=== PATIENT | female | born 1985 | race Caucasian/White ===

== ENCOUNTER → 2018-04-18 12:32 | Outpatient (CLI) | payer OTHER, SELFPAY ==
--- NOTE | 2018-04-18 12:36 | US_ITS ---
US transvaginal Ordering Physician: Marlon Mayes MD Patient Age: 33 years: Female HISTORY: ITS.REASON: US T/V- LLQP Left lower quadrant. Pain TECHNIQUE: Transvaginal pelvic ultrasound COMPARISON :Hysterosalpingogram 12/25/2013. FINDINGS Retroverted, retroflexed uterus.. Uterus measures 8.1 cm length as 5.1 cm x 6.6 cm.. Endometrium measures 7.6 mm... LMP 04/11/2018 Bilateral Essure filaments evident leading into both fallopian tubes Right ovary measures 3.8 x 2 cm x 2.7 cm 8 and 9 mm follicle seen at margin of right ovary with 2 or 3 other small follicles Left ovary measures 3 x 2.1 cm x 2.5 cm.. A few tiny follicles additionally seen. Largest follicle 1.2 cm. Another measuring just less than 1 cm. Moderate amount of fluid is seen at the cul-de-sac..... Fluid collection at the cul-de-sac measuring 2.4 cm x 1.3 cm x 6.8 cm with. Possibly related to undulation midcycle. However Follow recommended if symptoms progress Bilateral Essure filaments faintly evident IMPRESSION: ...... 1. Uterus is retroverted. Normal size. Moderate endometrial stripe. 2. Ovaries appear normal size with follicles bilaterally. Largest current follicle measuring 1.2 cm at the left ovary 3. Mild to moderate amount of Free Fluid at the cul-de-sac. . 4. Bilateral Essure filaments faintly evident
== END ==
PROVIDERS: PCP Internal Medicine Adolescent Medicine; Visit Provider Nurse Practitioner Obstetrics & Gynecology
DX: R10.32 Left lower quadrant pain (principal)
CPT/HCPCS: 76830

== ENCOUNTER → 2022-07-31 15:27 | Outpatient (CLI) | payer OTHER, SELFPAY ==
[2022-07-31 15:57] LABS: Basophils # 0.1 K/mm3 (0-0.2); Basophils % 0.8 % (0.1-2.0); Eosinophils # 0.3 K/mm3 (0.0-0.4); Eosinophils % 2.8 % (0.1-12.0); Hematocrit 32.2 % (37.0-47.0); Hemoglobin 9.8 g/dL (12.2-16.2); Lymphocytes # 2.4 K/mm3 (0.7-4.5); Lymphocytes % 25.5 % (10-50); Mean Corpuscular HGB Conc 30.4 g/dL (31.8-35.4); Mean Corpuscular Hemoglobin 21.4 pg (27.0-31.2); Mean Corpuscular Volume 70.2 fl (81-99); Mean Platelet Volume 7.6 fl (7.4-10.4); Monocytes # 0.6 K/mm3 (0.1-1.0); Monocytes % 6.3 % (1.7-9.3); Neutrophils % 64.7 % (37.0-80.0); Platelet Count 357 K/mm3 (142-424); Red Blood Count 4.58 M/mm3 (4.20-5.40); Red Cell Distribution Width 17.7 % (11.5-17.5); White Blood Count 9.3 K/mm3 (4.8-10.8)
[2022-07-31 16:15] LABS: Alanine Aminotransferase 38 U/L (12-78); Albumin Level 4.2 g/dl (3.5-5.0); Albumin/Globulin Ratio 1.3 (1.1-1.8); Alkaline Phosphatase 60 U/L (38-126); Anion Gap 12.1 mEq/L (5-15); Aspartate Amino Transferase 37 U/L (14-36); Blood Urea Nitrogen 16 mg/dl (7-17); Calcium 9.2 mg/dl (8.4-10.2); Carbon Dioxide 25 mmol/L (22.0-30.0); Chloride 109 mmol/L (98-107); Estimated Glomerular Filt Rate 94 ml/min (>60); GFR (African American) 113 ML/MIN (>60); Globulin 3.3 g/dL (1.3-3.2); Glucose 93 mg/dl (74-100); Potassium 4.1 mmoL/L (3.5-5.1); Sodium 142 mmol/L (136-145); Total Protein,Serum 7.5 g/dl (6.3-8.2)
[2022-07-31 16:28] LABS: Bilirubin,Total < 0.1 mg/dl (0.2-1.3)
== END ==
PROVIDERS: PCP Internal Medicine Adolescent Medicine; Visit Provider Obstetrics & Gynecology
DX: Z01.812 Encounter for preprocedural laboratory examination (principal); Z20.822 Contact with and (suspected) exposure to COVID-19; N92.0 Excessive and frequent menstruation with regular cycle
CPT/HCPCS: 80053; 85025; C9803; U0003; U0005

== ENCOUNTER 2022-08-02 06:00 | Day surgery (SDC) | payer OTHER, SELFPAY ==
[2022-07-31 15:08] VITALS: BMI 37.4
[2022-08-01 10:14] LABS: HCG Qualitative, Serum Negative (Negative)
[2022-08-02] VITALS (10 sets, daily range): BP systolic 123–152; BP diastolic 76–98; PULSE 60–95; RESP 16–18; TEMP 36.1–36.8; O2SAT 95–100
--- NOTE | 2022-08-02 07:28 | EXP.ANES.CKL ---
[facility] Medical History No significant past medical history Surgical History No significant past surgical history Family History Grandmother Diabetes Grandfather Diabetes Social History (Updated 08/02/22 @ 06:25 by Althea Radford, RN) Smoking Status: Never smoker alcohol intake: never substance use type: denies use current occupational status: employed Travel in the last 8 weeks: Inside the [place] [facility] Anesthesia Checklist Patient Identification Patient Identification: Arm Band Structural Data Admitted From: Home Planned Operative Procedure/s: D and cl Hysteroscopy, myosure, novosure Consent for Planned Operative Procedure(s) Verified: Yes Verified Documents: Surgical Consent and History and Physical NPO Status Verified Time NPO: 00:00 Additional verifications Anesthesia Reactions: No Hx Blood Transfusions: No Blood Transfusion Reaction: No Airway Assessment C-Spine Mobility Assessed: Yes TMJ Mobility Assessed: Yes Dentition: Good Dentition Neurological Assessment Level of Consciousness: Awake Hx Seizures: No Numbness or tingling in extremities: No Anesthesia Plan Anesthesia Risk discussed: Yes Anesthesia Plan: Verified ASA Class: I Anesthesia Type: General
--- NOTE | 2022-08-02 08:40 | P.OP_ITS ---
Date of procedure: 08/02/22 Pre-op Diagnosis:: 1. Heavy menstrual bleeding 2. Anemia resulting from chronic blood loss Post-op Diagnosis:: 1. Heavy menstrual bleeding 2. Anemia resulting from chronic blood loss 3. Endometrial polyp Procedure performed:: 1. D&C Hysteroscopy 2. Myosure excision of endometrial polyp 3. Novasure endometrial ablation Surgeon:: Malou Banda MD [employer]:: Other Anesthesia: GETA Estimated blood loss (mL): 5 Operative findings:: Large uterine cavity Diffuse proliferative endometrium 2 endometrial lesions anterior cavity, consistent with endometrial polyp or submucosal fibroids Operative note:: The patient was taken to the operating room and general anesthesia was administered. She was prepped/draped in lithotomy position. The anterior lip of the cervix was grasped with a single tooth tenaculum and the cervix was dilated with Bass dilators of serially increasing size until the external os was able to accomodate the Myosure hysteroscope. The hysteroscope was advanced through the cervix and into the uterine cavity, which was distended with LR. Once the uterus was sufficiently distended, the cavity was evaluated and revealed diffuse proliferative endometrium, as well as 2 lesions on the anterior cavity wall that were consistent with submucosal fibroids or endometrial polyps. The Myosure was inserted into the hysteroscope and these were excised successfully and without complication or significant fluid deficit. After the conclusion of this procedure, the Myosure and hysteroscope were removed from the uterus. The uterine cavity sounded to a length of 6cm. The Novasure was inserted through the cervix and expanded to fit the width of the uterus, with a width of 4.5cm. After a successful cavity assessment, the device was deployed and the endometrial ablation was completed in 89 seconds. Once the ablation was completed, the Novasure was removed from the uterus and the hysteroscope was reinserted into the uterine cavity. The cavity appeared diffusely cauterized. The hysteroscope was removed from the uterus and all instruments removed from the vagina. The tenaculum site was hemostatic. All sponge/lap/needle/instrument counts correct x2. Total EBL: 5cc. The patient was taken out of lithotomy position, extubated and taken to the PACU in stable condition. Condition: stable Disposition: PACU Specimens:: Endometrial polyps Complications:: None
--- NOTE | 2022-08-02 08:41 | EXP.ANES.I ---
[facility] Anesthesia Record Part I Anesthesia Record I Intake, IV Amount: 900 Estimated blood loss (mL): 5 Urine output (mL): 0 Blood Products used (#): none Blood Pressure: 133/77 SaO2: 95 Pulse Rate: 95 Respiratory Rate: 18 Temperature: 97 F Patient is:: Drowsy and Stable Stable to PACU at:: 07:54
--- NOTE | 2022-08-02 09:08 | SUR.PHASEI ---
904- detailed report called to kiara hidalgo in post op 09- pt left in stable condition with kiara hidalgo in post op at this time. [facility] CDI, all vitals stable
--- NOTE | 2022-08-02 10:05 | EXP.ANES.II ---
[facility] Anesthesia Record Part II Anesthesia Record Part II Discharge Time: 09:05 Destination: Surgical Day Care (OP Surgery) PACU nurse assessment reviewed?: Yes Patient Condition:: Good Anesthesia Complications:: None Swallowing reflex intact?: Yes Cyanosis?: No Blood Pressure: 125/94 Pulse Rate: 70 Temperature: 97 F Mental Status: Alert & Oriented Pain level:: 0 Nausea and/or vomitting:: None Intake, IV Amount: 0
== END 2022-08-02 09:37 | disposition home or self-care (01) ==
PROVIDERS: PCP Internal Medicine Adolescent Medicine; Visit Provider Obstetrics & Gynecology
PROC: (CPT 58563; principal; 2022-08-02 07:30)
DX: N84.0 Polyp of corpus uteri (principal); D50.0 Iron deficiency anemia secondary to blood loss (chronic); N93.9 Abnormal uterine and vaginal bleeding, unspecified
CPT/HCPCS: 58563; 84703; 96374; J2405

== ENCOUNTER → 2023-02-18 18:41 | Outpatient (CLI) | payer OTHER, SELFPAY ==
--- NOTE | 2023-02-18 19:24 | XR_ITS ---
PROCEDURE INFORMATION: Exam: XR Left Hand Exam date and time: 02/18/2023 7:16 PM Age: 37 years old Clinical indication: Injury or trauma; Other: Jammed thumb against dock; Blunt trauma (contusions or hematomas); Finger; Left TECHNIQUE: Imaging protocol: Radiologic exam of the left hand. Views: 3 or more views. COMPARISON: No relevant prior studies available. FINDINGS: Bones/joints: Normal. Soft tissues: Normal. IMPRESSION: No acute findings.
== END ==
PROVIDERS: PCP Internal Medicine Adolescent Medicine; Visit Provider Emergency Medicine
DX: S60.932A Unspecified superficial injury of left thumb, initial encounter (principal); M79.645 Pain in left finger(s)
CPT/HCPCS: 73130

== ENCOUNTER → 2023-06-28 10:01 | Outpatient (CLI) | payer OTHER, SELFPAY ==
--- NOTE | 2023-06-28 10:01 | US_ITS ---
PROCEDURE INFORMATION: Exam: US Left Breast, Complete MG Left Diagnostic Breast Tomosynthesis Exam date and time: 06/28/2023 10:19 AM Age: 38 years old Clinical indication: Left breast palpable lump TECHNIQUE: Imaging protocol: Complete ultrasound of all four quadrants of the left breast and the retroareolar regions, including ultrasound of the axilla when performed. Left Diagnostic tomosynthesis and 2D mammography including computer-aided detection (CAD) when performed. Unilateral or bilateral exam. COMPARISON: No relevant prior studies available. FINDINGS: MAMMOGRAPHY: The breast is heterogeneously dense, which may obscure small masses. There is no stellate mass, architectural distortion or suspicious microcalcifications to suggest malignancy. Two skin markers were placed in the left medial breast at the site of palpable abnormalities. No skin thickening or axillary adenopathy. ULTRASOUND: Sonographic images of the left breast including the retroareolar region, all 4 quadrants and the axilla do not demonstrate any solid or cystic masses. This is with particular attention to the medial breast. Incidental 0.8 cm sebaceous cyst in the 6 o'clock axis. No architectural distortion or acoustical shadowing. No skin thickening or axillary adenopathy. IMPRESSION: Palpable abnormalities in the left breast correspond both mammographically and sonographically to normal fibroglandular structures. There is no mammographic evidence of malignancy. Further evaluation of a palpable abnormality should be based on clinical grounds regardless of radiographic findings or lack thereof. Annual mammographic screening is recommended unless otherwise clinically indicated. ASSESSMENT: BI-RADS Category 1: Negative
== END ==
PROVIDERS: PCP Internal Medicine Adolescent Medicine; Visit Provider Obstetrics & Gynecology
DX: N63.20 Unspecified lump in the left breast, unspecified quadrant (principal)
CPT/HCPCS: 76641; 77061; 77065; G0279

== ENCOUNTER 2024-09-24 08:16 | Outpatient (CLI) | payer OTHER, SELFPAY ==
--- NOTE | 2024-09-24 08:16 | MM_ITS ---
PROCEDURE INFORMATION: Exam: MG Bilateral Screening 3D Mammography Exam date and time: 09/24/2024 8:21 AM Age: 39 years old Clinical indication: Screening examination. TECHNIQUE: Imaging protocol: Bilateral Screening tomosynthesis and 2D mammography including computer-aided detection (CAD) when performed. COMPARISON: 1. MG MM DIG MAMM DX UNILAT LT CAD 06/28/2023 10:19 AM 2. US BREAST LT COMPLETE 06/28/2023 11:07 AM FINDINGS: MAMMOGRAPHY: Breast composition: The breasts are heterogeneously dense, which may obscure small masses. Mass: None. Architectural distortion: None. Calcifications: No suspicious calcifications. Asymmetric density: None. Skin thickening: None. Axillary adenopathy: None. IMPRESSION: No mammographic evidence of malignancy. Annual screening is recommended unless otherwise clinically indicated. ASSESSMENT: BI-RADS Category 1: Negative.
== END 2024-09-24 23:59 | disposition home or self-care (01) ==
LOC: RAD 08:16
PROVIDERS: PCP Internal Medicine Adolescent Medicine; Visit Provider Nurse Practitioner Obstetrics & Gynecology
DX: Z12.31 Encounter for screening mammogram for malignant neoplasm of breast (principal)
CPT/HCPCS: 77063; 77067

== ENCOUNTER 2025-10-15 10:18 | Outpatient (CLI) | payer OTHER, SELFPAY ==
--- NOTE | 2025-10-15 10:35 | MM_ITS ---
PROCEDURE INFORMATION: Exam: MG Bilateral Screening 3D Mammography Exam date and time: 10/15/2025 10:30 AM Age: 40 years old Clinical indication: Screening examination TECHNIQUE: Imaging protocol: Bilateral Screening tomosynthesis and 2D mammography including computer-aided detection (CAD) when performed. COMPARISON: 1. MG MM DIG SCREENING MAMM BI W/CAD 09/24/2024 8:21 AM 2. MG MM DIG MAMM DX UNILAT LT CAD 06/28/2023 10:19 AM FINDINGS: MAMMOGRAPHY: Breast composition: There are scattered areas of fibroglandular density. Mass: None. Architectural distortion: None. Calcifications: No suspicious calcifications. Asymmetric density: None. Skin thickening: None. Axillary adenopathy: None. IMPRESSION: No mammographic evidence of malignancy. Annual screening is recommended unless otherwise clinically indicated. ASSESSMENT: BI-RADS Category 1: Negative.
== END 2025-10-15 23:59 | disposition home or self-care (01) ==
LOC: RAD 10:18
PROVIDERS: PCP Internal Medicine Adolescent Medicine; Visit Provider Nurse Practitioner Obstetrics & Gynecology
DX: N63.24 Unspecified lump in the left breast, lower inner quadrant (principal); R92.323 Mammographic fibroglandular density, bilateral breasts
CPT/HCPCS: 77063; 77067